=== PATIENT | female | born 1995 | race Asian ===

== ENCOUNTER 2017-01-11 23:34 | Emergency (ER) | payer OTHER ==
[~2017-01-11] VITALS: Ht 165.1 cm; Wt 54.4 kg
[~2017-01-11 23:34] MED LIST: IBUPROFEN400 MG ORAL; NITROFURANTOIN100 M2 ORAL; NKM
[2017-01-11 23:50] VITALS: BP 110/67
[2017-01-12 00:21] LABS: EOSINOPHILS % (AUTO) 0.8 % (0.0-3.0); LYMPHOCYTES % (AUTO) 16.4 % (20.0-45.0); MEAN CORPUSCULAR HEMOGLOBIN 32.4 PG (27.0-31.0); MEAN CORPUSCULAR HGB CONC 33.6 G/DL (32.0-36.0); MEAN CORPUSCULAR VOLUME 96 FL (80-99); MEAN PLATELET VOLUME 5.9 FL (6.5-10.1); MONOCYTES % (AUTO) 10.4 % (1.0-10.0); NEUTROPHILS % (AUTO) 71.3 % (45.0-75.0); PLATELET COUNT 284 K/UL (150-450); RED BLOOD COUNT 4.17 M/UL (4.20-5.40); RED CELL DISTRIBUTION WIDTH 11.1 % (11.6-14.8); WHITE BLOOD COUNT 12.2 K/UL (4.8-10.8)
[2017-01-12 00:28] LABS: KETONES,URINE NEGATIVE (NEGATIVE); LEUKOCYTE ESTERASE ,URINE 3+ (NEGATIVE); NITRITE,URINE NEGATIVE (NEGATIVE); PH,URINE 6.5 (4.5-8.0); PROTEIN,URINE 1+ (NEGATIVE); UROBILINOGEN,URINE 4 MG/DL (0.0-1.0)
[2017-01-12 00:30] LABS: APPEARANCE,URINE SLIGHTLY CLOUDY
[2017-01-12 00:34] LABS: ALANINE AMINOTRANSFERASE 24 U/L (3-33); ALBUMIN/GLOBULIN RATIO 0.8 (1.0-2.7); ANION GAP 15 (5-15); ASPARTATE AMINO TRANSFERASE 21 U/L (5-40); CALCIUM 9.5 mg/dL (8.6-10.2); CARBON DIOXIDE 28 mEQ/L (20-30); CHLORIDE 95 mEQ/L (98-107); GLOMERULAR FILTRATION RATE > 60 mL/min (>60); HEMOLYSIS 4; LIPASE 80 U/L (< 60); POTASSIUM 5.1 mEQ/L (3.4-4.9); SODIUM 138 mEQ/L (135-145); TOTAL PROTEIN 8.5 g/dL (6.6-8.7)
[2017-01-12 00:44] LABS: BACTERIA,URINE FEW /HPF; SQUAMOUS EPITHELIAL CELL,UR MODERATE /LPF (NONE/OCC); WBC,URINE TNTC /HPF (0 - 2)
[2017-01-12] MEDS ORDERED: cefTRIAXone 1 GM in NS 55 ML IVPB ONE (01:15)
[2017-01-12 01:50] VITALS: BP 99/65
[2017-01-12] MEDS ORDERED: IBUPROFEN600 MG ORAL (02:44)
[2017-01-12] MEDS ORDERED: KEFLEX500 MG ORAL (02:44)
[2017-01-12 03:00] VITALS: BP 97/64
--- NOTE | 2017-01-12 03:20 | Emergency Room Report ---
History of Present Illness General Chief Complaint: Abdominal Pain Source: Patient Present Illness HPI Patient is a 21-year-old female who presented after increased right upper and right lower quadrant pain. Patient reported having pain for several days which was worsened after eating. Patient reported having intermittent bouts of abdominal cramping as well some diarrhea. She denied any vomiting. Patient reported having increased swelling to her upper abdomen. She denied prior history of surgeries to her abdomen. She denied being .The patient not having a fever. She denied black or bloody stools. Allergies: Coded Allergies: No Known Allergies (Unverified , 04/14/16) Patient History Past Medical History: see triage record Last Menstrual Period: Dec Reviewed Nursing Documentation: PMH: Agreed, PSxH: Agreed Nursing Documentation-PMH Past Medical History: No Stated History Review of Systems All Other Systems: negative except mentioned in HPI Physical Exam Vital Signs Date Time Temp Pulse Resp B/P Pulse Ox O2 Delivery O2 Flow Rate FiO2 01/11/17 23:38 98.2 101 18 108/75 100 Room Air Sp02 EP Interpretation: reviewed, normal General Appearance: normal inspection, well appearing, no apparent distress, alert, GCS 15, non-toxic Head: atraumatic ENT: normal ENT inspection, hearing grossly normal, normal voice Neck: normal inspection, full range of motion, supple, no bony tend Respiratory: normal inspection, lungs clear, normal breath sounds, no respiratory distress, no retraction, no wheezing Cardiovascular #1: regular rate, rhythm, no edema Gastrointestinal: normal inspection, normal bowel sounds, non tender, soft, no guarding, no hernia Genitourinary: no CVA tenderness Musculoskeletal: normal inspection, back normal, normal range of motion Neurologic: normal inspection, alert, oriented x3, responsive, clinical care coordinator III-XII nml as tested, speech normal Psychiatric: normal inspection, judgement/insight normal, mood/affect normal Skin: normal inspection, normal color, no rash Medical Decision Making Diagnostic Impression: Primary Impression: Urinary tract infection ER Course Patient presented for abdominal pain. Differential diagnoses included ischemic bowel, appendicitis, perforated viscus, abdominal aortic aneurysm, inferior myocardial infarction, viral gastroenteritis Because of complexity of patient's case laboratory testing and imaging studies were ordered. The abdominal ultrasound showed no evidence of gallbladder stones. The patient noted have some tenderness in the right upper quadrant. Urinalysis showed evidence of urinary tract infection. Patient was given IV Rocephin. Laboratory testing showed slightly elevated white blood count. The pelvic ultrasound showed no evidence of ovarian cyst or mass. Patient was advised followup with her PREP ROOM SUPERVISOR for reexamination.The patient is advised to follow up with primary care doctor in 1-2 days. Patient is advised to return if any worsening condition or if any changes in status that are concerning. Labs Test 01/11/17 23:50 White Blood Count 12.2 K/UL (4.8-10.8) Red Blood Count 4.17 M/UL (4.20-5.40) Hemoglobin 13.5 G/DL (12.0-16.0) Hematocrit 40.1 % (37.0-47.0) Mean Corpuscular Volume 96 FL (80-99) Mean Corpuscular Hemoglobin 32.4 PG (27.0-31.0) Mean Corpuscular Hemoglobin Concent 33.6 G/DL (32.0-36.0) Red Cell Distribution Width 11.1 % (11.6-14.8) Platelet Count 284 K/UL (150-450) Mean Platelet Volume 5.9 FL (6.5-10.1) Neutrophils (%) (Auto) 71.3 % (45.0-75.0) Lymphocytes (%) (Auto) 16.4 % (20.0-45.0) Monocytes (%) (Auto) 10.4 % (1.0-10.0) Eosinophils (%) (Auto) 0.8 % (0.0-3.0) Basophils (%) (Auto) 1.0 % (0.0-2.0) Urine Color Yellow Urine Appearance Slightly cloudy Urine pH 6.5 (4.5-8.0) Urine Specific [place] 1.015 (1.005-1.035) Urine Protein 1+ (NEGATIVE) Urine Glucose (UA) Negative (NEGATIVE) Urine Ketones Negative (NEGATIVE) Urine Occult Blood 1+ (NEGATIVE) Urine Nitrite Negative (NEGATIVE) Urine Bilirubin Negative (NEGATIVE) Urine Urobilinogen 4 MG/DL (0.0-1.0) Urine Leukocyte Esterase 3+ (NEGATIVE) Urine RBC 2-4 /HPF (0 - 2) Urine WBC Tntc /HPF (0 - 2) Urine Squamous Epithelial Cells Moderate /LPF (NONE/OCC) Urine Bacteria Few /HPF (NONE) Urine HCG, Qualitative Negative Sodium Level 138 mEQ/L (135-145) Potassium Level 5.1 mEQ/L (3.4-4.9) Chloride Level 95 mEQ/L (98-107) Carbon Dioxide Level 28 mEQ/L (20-30) Anion Gap 15 (5-15) Blood Urea Nitrogen 14 mg/dL (7-23) Creatinine 1.0 mg/dL (0.5-0.9) Estimat Glomerular Filtration Rate > 60 mL/min (>60) Glucose Level 95 mg/dL (74-106) Calcium Level 9.5 mg/dL (8.6-10.2) Total Bilirubin 0.3 mg/dL (0.0-1.2) Aspartate Amino Transf (AST/SGOT) 21 U/L (5-40) Alanine Aminotransferase (ALT/SGPT) 24 U/L (3-33) Alkaline Phosphatase 62 U/L (35-104) Total Protein 8.5 g/dL (6.6-8.7) Albumin 4.0 g/dL (3.5-5.2) Globulin 4.5 g/dL Albumin/Globulin Ratio 0.8 (1.0-2.7) Lipase 80 U/L (< 60) Last Vital Signs Date Time Temp Pulse Resp B/P Pulse Ox O2 Delivery O2 Flow Rate FiO2 01/12/17 01:50 98.2 88 16 99/65 100 Room Air Status: improved Disposition: HOME, SELF-CARE Condition: Stable Scripts Ibuprofen* (MOTRIN*) 600 Mg Tablet 600 MG ORAL Q8H Y for For Pain, #30 TAB 0 Refills Prov: Brian Escobar 01/12/17 Cephalexin* (KEFLEX*) 500 Mg Capsule 500 MG ORAL Q6H, #28 CAP 0 Refills Prov: Brian Escobar 01/12/17 Patient Instructions: Urinary Tract Infection, Abdominal Pain, Adult Brian Escobar Jan 12, 2017 03:20
--- NOTE | 2017-01-12 09:17 | Diagnostic Imaging Report ---
Indication: PAIN Technique: Ultrasound of the abdomen. Comparison: None Findings: Liver: The liver is normal in size and echogenicity. No focal abnormalities are noted. Gallbladder: The gallbladder is normal. No stones are visualized. The wall is not thickened. Common bile duct: Normal in size. Pancreas: The visualized portion of pancreas is normal in echogenicity. There are no masses. Kidneys: The kidneys are normal in size and echogenicity. There is no hydronephrosis. Spleen: The spleen is normal in size and echogenicity. Aorta: The visualized portion of the aorta is normal in caliber. IVC: The demonstrated portion of the inferior vena cava is normal. Impression: Normal ultrasound of the abdomen.
== END 2017-01-12 03:00 | disposition home or self-care (01) ==
LOC: EMR 23:55
DX: N39.0 Urinary tract infection, site not specified (principal); R10.31 Right lower quadrant pain; R10.11 Right upper quadrant pain; R19.7 Diarrhea, unspecified
CPT/HCPCS: 36415; 76700; 76856; 80053; 81003; 81025; 83690; 85025; 87086; 96374; 99284; J0696

== ENCOUNTER 2017-01-16 23:39 | Emergency (ER) | payer OTHER ==
[~2017-01-16] VITALS: Ht 165.1 cm; Wt 54.4 kg
[~2017-01-16 23:39] MED LIST changes: +IBUPROFEN600 MG ORAL; +KEFLEX500 MG ORAL
[2017-01-17] MEDS ORDERED: Morphine Sulfate 4mg/ml Inj IVP ONE (00:30)
[2017-01-17 00:53] LABS: BASOPHILS % (AUTO) 0.7 % (0.0-2.0); EOSINOPHILS % (AUTO) 0.8 % (0.0-3.0); LYMPHOCYTES % (AUTO) 9.5 % (20.0-45.0); MEAN CORPUSCULAR HEMOGLOBIN 31.7 PG (27.0-31.0); MEAN CORPUSCULAR HGB CONC 33.3 G/DL (32.0-36.0); MEAN CORPUSCULAR VOLUME 95 FL (80-99); MEAN PLATELET VOLUME 5.6 FL (6.5-10.1); MONOCYTES % (AUTO) 9.8 % (1.0-10.0); NEUTROPHILS % (AUTO) 79.1 % (45.0-75.0); PLATELET COUNT 321 K/UL (150-450); RED BLOOD COUNT 3.82 M/UL (4.20-5.40); RED CELL DISTRIBUTION WIDTH 11.1 % (11.6-14.8); WHITE BLOOD COUNT 13.8 K/UL (4.8-10.8)
[2017-01-17 01:07] LABS: ALANINE AMINOTRANSFERASE 15 U/L (3-33); ALBUMIN/GLOBULIN RATIO 0.8 (1.0-2.7); ANION GAP 15 (5-15); ASPARTATE AMINO TRANSFERASE 15 U/L (5-40); CARBON DIOXIDE 27 mEQ/L (20-30); CHLORIDE 95 mEQ/L (98-107); CREATININE 0.7 mg/dL (0.5-0.9); GLOMERULAR FILTRATION RATE > 60 mL/min (>60); HEMOLYSIS 0; LIPASE 57 U/L (< 60); POTASSIUM 3.2 mEQ/L (3.4-4.9); SODIUM 137 mEQ/L (135-145)
[2017-01-17 01:18] LABS: APPEARANCE,URINE CLEAR; KETONES,URINE 1+ (NEGATIVE); LEUKOCYTE ESTERASE ,URINE 2+ (NEGATIVE); NITRITE,URINE NEGATIVE (NEGATIVE); PH,URINE 6 (4.5-8.0); PROTEIN,URINE 2+ (NEGATIVE); UROBILINOGEN,URINE NORMAL MG/DL (0.0-1.0)
[2017-01-17 01:29] LABS: BACTERIA,URINE FEW /HPF; RBC,URINE 0 /HPF (0 - 2); SQUAMOUS EPITHELIAL CELL,UR MANY /LPF (NONE/OCC); WBC,URINE 15-20 /HPF (0 - 2)
[2017-01-17 01:30] LABS: MUCUS,URINE FEW /LPF (NONE/OCC)
[2017-01-17] MEDS ORDERED: Vancomycin 1 GM in NS 275 ML IV ONE (03:00)
[2017-01-17] MEDS ORDERED: Vancomycin 1gm inj IVPB ONE (03:11)
--- NOTE | 2017-01-17 03:24 | Emergency Room Report ---
History of Present Illness General Chief Complaint: Abdominal Pain Source: Patient Present Illness HPI 21 YO F with continued right sided abd pain, total of 1+ week now. Was seen here 6 days ago, treated with Rx for Keflex for presumed UTI. No improvement in symptoms. In fact, urine Cx shows no growth at this point. She had negative ultrasound of gall bladder last week. Denies associated nausea/vomiting, diarrhea but mom states decreased appetite. Patient feels "like my abdomen is swollen on that side." Denies urinary complaints. History of right sided renal colic last year but denies similarity of symptoms. Denies sick contacts, foreign travel, previous abd/pelvic surgery. Allergies: Coded Allergies: No Known Allergies (Unverified , 04/14/16) Patient History Past Medical History: other - renal colic Past Surgical History: none Pertinent Family History: none Social History: Denies: alcohol use, drug use, smoking Last Menstrual Period: Dec Now: No Immunizations: UTD Reviewed Nursing Documentation: PMH: Agreed, PSxH: Agreed Nursing Documentation-PMH Past Medical History: No Stated History Review of Systems All Other Systems: negative except mentioned in HPI Physical Exam Vital Signs Date Time Temp Pulse Resp B/P Pulse Ox O2 Delivery O2 Flow Rate FiO2 01/16/17 23:45 97.9 93 16 110/76 100 Room Air Sp02 EP Interpretation: reviewed, normal General Appearance: normal inspection, well appearing, no apparent distress, alert, GCS 15, non-toxic Head: normocephalic, atraumatic Eyes: bilateral eye EOMI, bilateral eye PERRL ENT: normal ENT inspection, hearing grossly normal, normal voice Neck: normal inspection, full range of motion, supple, no bony tend Respiratory: normal inspection, lungs clear, normal breath sounds, no respiratory distress, no retraction, no wheezing Cardiovascular #1: regular rate, rhythm, no edema Gastrointestinal: normal inspection, normal bowel sounds, soft, no guarding, no hernia, other - Mild RUQ ttp. No rebound or guarding. No ttp to RLQ Genitourinary: no CVA tenderness Musculoskeletal: normal inspection, back normal, normal range of motion, Mikki' s Sign negative Neurologic: normal inspection, alert, oriented x3, responsive, mule driver III-XII nml as tested, motor strength/tone normal, speech normal Psychiatric: normal inspection, judgement/insight normal, mood/affect normal Skin: normal inspection, normal color, no rash Lymphatic: normal inspection Medical Decision Making Diagnostic Impression: Primary Impression: Abdominal pain Qualified Codes: R10.11 - Right upper quadrant pain Additional Impression: Leukocytosis Qualified Codes: D72.829 - Elevated white blood cell count, unspecified ER Course Abd pain with rising leukocytosis of unknown cause. VSS. Afebrile. Well appearing. UA: No blood. Multiple leuks and epithelial cells, likely contaminated. But less WBCs seen than on previous Rising leukocytosis to 13.8 from 12.2 CTAP was ordered with PO and IV Contrast; both the boiler control technician and RN neglected to give patient PO contrast. Although appendix was not visualized there were no assoc inflammatory changes in the area. Given patient being female and young, I do not think it would be appropriate to re-scan the patient at this time. A: - Unlikely renal colic as no hematuria, symptoms of >1 week. No stone seen on CT - Unlikely cholecystitis as normal LFTs. Abd ultrasound 1 week ago was negative - Unlikely pyelo as Urine Cx was negative. No CVAT. - Unlikely pelvic source as ttp and pain is RUQ. - Will send Blood and Urine Cx and give broad-spectrum Abx and admit until source can be identified - Accepted by Dr Clemente for transfer to [facility] at 430am Last Vital Signs Date Time Temp Pulse Resp B/P Pulse Ox O2 Delivery O2 Flow Rate FiO2 01/17/17 01:35 97.8 01/16/17 23:45 93 16 110/76 100 Room Air Status: improved Disposition: ADMITTED INPATIENT Condition: Serious Referrals: [facility],REFERRING (PCP) NARAYAN MARKS M.D. Jan 17, 2017 03:24
[2017-01-17 05:02] VITALS: BP 95/55
[2017-01-17] MEDS ORDERED: Zosyn 4.5gm inj ONE (05:33)
[2017-01-17] MEDS ORDERED: Piperacillin/Tazobactam 4.5 GM in NS 110 ML IV SCH (06:00)
[2017-01-17 07:07] VITALS: BP 100/52
[2017-01-17 08:05] VITALS: BP 90/46
[2017-01-17 08:08] VITALS: BP 90/46
--- NOTE | 2017-01-17 09:50 | Diagnostic Imaging Report ---
Clinical Indication: Abdominal pain Technique: No oral contrast utilized, per emergency room physician request IV administration nonionic contrast. Venous phase spiral acquisition obtained through the abdomen and pelvis. Multiplanar reconstructions were generated. Total dose length product 679 mGycm. CTDIvol(s) mGy Comparison: None Findings: The appendix is only equivocally visualized no other no findings to suggest acute appendicitis. No evidence of diverticulosis or diverticulitis. Distal small bowel loops are somewhat prominent with some evidence of mild stasis of contents. No definite small bowel distention. There is equivocal trace free fluid within the pelvis. There is also equivocal trace fluid surrounding the liver. No free intraperitoneal air. The distal esophagus, stomach, duodenum are unremarkable. The gallbladder is unremarkable. The bile ducts are unremarkable. The liver demonstrates a subcentimeter low-attenuation lesion within the dome of the right lobe. The pancreas, spleen, adrenals, kidneys are unremarkable. No mesenteric or retroperitoneal mass or adenopathy. No pelvic mass or adenopathy. Atelectatic changes are seen at the right lung base. The bones are unremarkable Impression: Equivocal slightly prominent fluid-filled distal small bowel loops with evidence of some stasis of contents. This may reflect mild enteritis changes or ileus. There is small amount of free fluid surrounding the liver. Etiology/significance uncertain. There is also equivocal trace free fluid within the pelvis which, if real, is most likely physiologic No acute process otherwise Right basilar pulmonary atelectasis Subcentimeter low-attenuation lesion in the dome of the liver, too small to characterize, most likely benign simple cyst. No further followup necessary This agrees with the preliminary interpretation provided overnight by [facility]eradiology service. The CT scanner at [facility] is accredited by the [employer] and the scans are performed using protocols designed to limit radiation exposure to as low as reasonably achievable to attain images of sufficient resolution adequate for diagnostic evaluation.
== END 2017-01-17 08:15 | disposition short-term general hospital (02) ==
LOC: EMR 23:57
DX: R10.11 Right upper quadrant pain (principal); D72.829 Elevated white blood cell count, unspecified
CPT/HCPCS: 36415; 74177; 80053; 81003; 81025; 83690; 85025; 87040; 87086; 99285; J2270; J2543; J3370; J7050; Q9967

== ENCOUNTER 2019-03-23 17:33 | Emergency (ER) | payer OTHER ==
[~2019-03-23] VITALS: Ht 165.1 cm; Wt 64.4 kg
--- NOTE | 2019-03-23 18:27 | Emergency Room Report ---
History of Present Illness General Chief Complaint: Pain Source: Patient Present Illness HPI 23-year-old female presents to the emergency department complaining of 7 out of 10 in severity pain, swelling and tenderness to small indurated areas in the axilla bilaterally. Patient reports she had symptoms onset yesterday but they were not painful she woke up this morning with tenderness. Patient denies fevers or chills she reports some erythema. Patient states initially she thought it was a small pimple but now she is worried that it might be a lymph node. Patient denies previous history of symptoms similar to this in the past. She denies constitutional symptoms like night sweats, significant changes in weight or history of neoplastic disease. She denies . Allergies: Uncoded Allergies: SHELLFISH (Allergy, Unknown, 03/23/19) Patient History Past Medical History: see triage record Past Surgical History: none Pertinent Family History: none Last Menstrual Period: 3 years ago Now: No Reviewed Nursing Documentation: PMH: Agreed; PSxH: Agreed Nursing Documentation-PMH Past Medical History: No History, Except For Review of Systems All Other Systems: negative except mentioned in HPI Physical Exam Vital Signs Date Time Temp Pulse Resp B/P (MAP) Pulse Ox O2 Delivery O2 Flow Rate FiO2 03/23/19 17:55 98.2 87 18 98 Room Air Sp02 EP Interpretation: reviewed, normal General Appearance: no apparent distress, alert, GCS 15, non-toxic Head: normocephalic, atraumatic Eyes: bilateral eye normal inspection, bilateral eye PERRL ENT: hearing grossly normal, normal voice Neck: full range of motion Respiratory: lungs clear, normal breath sounds, speaking full sentences Cardiovascular #1: regular rate, rhythm Musculoskeletal: back normal, gait/station normal, normal range of motion, non- tender Neurologic: alert, oriented x3, responsive, motor strength/tone normal, sensory intact, speech normal, grossly normal Psychiatric: judgement/insight normal Skin: normal color, warm/dry, well hydrated, other - multiple indurated erythematous swollen lumps in the bilateral axilla, all less than 1cm in size, no LAD, no blisters or vessicles. Lymphatic: no adenopathy Medical Decision Making PA Attestation Dr. quiroga is my supervising Physician whom patient management has been discussed with. Diagnostic Impression: Primary Impression: Hidradenitis axillaris ER Course 23-year-old female presents to the emergency department complaining of 7 out of 10 in severity pain, swelling and tenderness to small indurated areas in the axilla bilaterally. Patient reports she had symptoms onset yesterday but they were not painful she woke up this morning with tenderness. Patient denies fevers or chills she reports some erythema. Patient states initially she thought it was a small pimple but now she is worried that it might be a lymph node. Patient denies previous history of symptoms similar to this in the past. She denies constitutional symptoms like night sweats, significant changes in weight or history of neoplastic disease. She denies . Ddx considered but are not limited to cellulitis, abscess, cystic acne, necrotizing fasciitis, insect bite, hidradenitis just to name a few. Vital signs: are WNL, pt. is afebrile H&PE are most consistent with bilateral hidradenitis. ORDERS: none required at this time, the diagnosis is clinical ED INTERVENTIONS: -none required at this time, the diagnosis is clinical and appointment can appropriately be performed in an outpatient setting. DISCHARGE: At this time pt. is stable for d/c to home. Will provide printed patient care instructions, and any necessary prescriptions. Care plan and follow up instructions have been discussed with the patient prior to discharge. Last Vital Signs Date Time Temp Pulse Resp B/P (MAP) Pulse Ox O2 Delivery O2 Flow Rate FiO2 03/23/19 17:55 98.2 87 18 98 Room Air Status: improved Disposition: HOME, SELF-CARE Condition: Stable Scripts Metronidazole (METRONIDAZOLE) 45 Gm Gel..gram. 1 APPLIC TOPIC TWICE A DAY, #45 GM Prov: Ngoc Reaves 03/23/19 Doxycycline Hyclate* (VIBRAMYCIN*) 100 Mg Capsule 100 MG ORAL EVERY 12 HOURS for 10 Days, #20 CAP 0 Refills Prov: Ngoc Reaves 03/23/19 Patient Instructions: Hidradenitis Suppurativa Additional Instructions: Take medications as directed. Follow up with a Primary Care Provider in 3-5 days, even if your symptoms have resolved. Return sooner to ED if new symptoms occur, or current symptoms become worse. - Please note that this Emergency Department Report was dictated using [employer] laboratory supervisor technology software, occasionally this can lead to erroneous entry secondary to interpretation by the dictation equipment. Ngoc Reaves March 23, 2019 18:27
[2019-03-23] MEDS ORDERED: VIBRAMYCIN100 MG ORAL (18:39)
[2019-03-23] MEDS ORDERED: METRONIDAZOLE45 GM TOPIC (18:39)
--- NOTE | 2019-03-23 18:40 | NUR ---
ED Nurse Note:pt gingeral by felipa flores no new orders. pt adore britton.
[2019-03-23 18:41] VITALS: BP 110/73
--- NOTE | 2019-03-23 19:13 | NUR ---
ER DISCHARGE NOTE: Patient is cleared to be discharged per ERMD, pt is aox4, on room air, with stable vital signs. pt was given dc and prescription instructions, pt was able to verbalize understanding, pt id band removed. pt is able to ambulate with steady gait. pt took all belongings.
[2019-03-23 19:14] VITALS: BP 110/73
== END 2019-03-23 19:15 | disposition home or self-care (01) ==
LOC: EMR 18:30
DX: L73.2 Hidradenitis suppurativa (principal); Z91.013 Allergy to seafood
CPT/HCPCS: 99282

== ENCOUNTER 2019-06-15 21:13 | Emergency (ER) | payer OTHER ==
[~2019-06-15] VITALS: Ht 165.1 cm; Wt 65.8 kg
[~2019-06-15 21:13] MED LIST changes: +METRONIDAZOLE45 GM TOPIC; +VIBRAMYCIN100 MG ORAL
[2019-06-15] MEDS ORDERED: MEDROL DOSEPAK4 MG ORAL (21:20)
--- NOTE | 2019-06-15 21:45 | NUR ---
ED Nurse Note: pt brought in by mother c/o low back pain and n/v, pt reports she injured her back in the and was seen in the [place] [facility] and the pain went away but it came back. pt also reports nausea and vomiting episode x 2. pt AA&ox4, gcs=15, skin warm and dry, resp even and unlabored, will cont monitor.
--- NOTE | 2019-06-15 21:46 | Emergency Room Report ---
History of Present Illness General Chief Complaint: Dizziness Source: Patient Present Illness HPI Patient presents with complaints of general weakness reports that on [facility] and was told about sciatic Pathology She was put on methylprednisolone and reports that about 1 day after that she started feeling some general weakness Had initially reported blurring of her vision however denies any visual changes at this time denies any headache Denies any vomiting or diarrhea denies any saddle paresthesia Allergies: Uncoded Allergies: SHELLFISH (Allergy, Unknown, 03/23/19) Patient History Past Medical History: see triage record Last Menstrual Period: 2016 Now: No - iud Reviewed Nursing Documentation: PMH: Agreed; PSxH: Agreed Nursing Documentation-PMH Past Medical History: No History, Except For Review of Systems All Other Systems: negative except mentioned in HPI Physical Exam Vital Signs Date Time Temp Pulse Resp B/P (MAP) Pulse Ox O2 Delivery O2 Flow Rate FiO2 06/15/19 21:15 98.6 80 14 123/76 (92) 97 Room Air Sp02 EP Interpretation: reviewed, normal General Appearance: well appearing, no apparent distress Head: normocephalic, atraumatic Eyes: bilateral eye PERRL, bilateral eye EOMI ENT: hearing grossly normal, normal pharynx, TMs + canals normal, uvula midline Neck: full range of motion, supple, no meningismus, no bony tend Respiratory: lungs clear, normal breath sounds, no rhonchi, no respiratory distress, no retraction, no accessory muscle use Cardiovascular #1: normal peripheral pulses, regular rate, rhythm, no edema, no gallop, no JVD, no murmur Gastrointestinal: normal bowel sounds, non tender, soft, no mass, no organomegaly, non-distended, no guarding, no hernia, no pulsatile mass, no rebound Genitourinary: no CVA tenderness Musculoskeletal: normal inspection Neurologic: oriented x3, responsive, flatbed driver III-XII nml as tested, motor strength/ tone normal, sensory intact Psychiatric: mood/affect normal Skin: no rash Lymphatic: normal inspection, no adenopathy Medical Decision Making Diagnostic Impression: Primary Impression: Dizziness Additional Impression: Medication reaction ER Course Given the patient's history and presentation multiple differentials and consideration Including but not limited to electrolyte pathology, anemia, infectious pathology Patient does not show any obvious central process or neurological deficits baseline blood work or appropriate levels My consideration is high regarding possible medication reaction with the steroids Patient also here reports that she has been diagnosed with erosive gastritis and was supposed to be taking omeprazole I did write a prescription for this and patient stable for close follow-up Labs Test 06/15/19 22:00 White Blood Count 10.7 K/UL (4.8-10.8) Red Blood Count 4.45 M/UL (4.20-5.40) Hemoglobin 14.9 G/DL (12.0-16.0) Hematocrit 42.3 % (37.0-47.0) Mean Corpuscular Volume 95 FL (80-99) Mean Corpuscular Hemoglobin 33.5 PG (27.0-31.0) Mean Corpuscular Hemoglobin Concent 35.2 G/DL (32.0-36.0) Red Cell Distribution Width 10.1 % (11.6-14.8) Platelet Count 247 K/UL (150-450) Mean Platelet Volume 6.1 FL (6.5-10.1) Neutrophils (%) (Auto) % (45.0-75.0) Lymphocytes (%) (Auto) % (20.0-45.0) Monocytes (%) (Auto) % (1.0-10.0) Eosinophils (%) (Auto) % (0.0-3.0) Basophils (%) (Auto) % (0.0-2.0) Differential Total Cells Counted 100 Neutrophils % (Manual) 85 % (45-75) Lymphocytes % (Manual) 10 % (20-45) Monocytes % (Manual) 5 % (1-10) Eosinophils % (Manual) 0 % (0-3) Basophils % (Manual) 0 % (0-2) Band Neutrophils 0 % (0-8) Platelet Estimate Adequate Platelet Morphology Normal Red Blood Cell Morphology Normal Urine Color Pale yellow Urine Appearance Clear Urine pH 8 (4.5-8.0) Urine Specific [place] 1.010 (1.005-1.035) Urine Protein Negative (NEGATIVE) Urine Glucose (UA) Negative (NEGATIVE) Urine Ketones Negative (NEGATIVE) Urine Blood Negative (NEGATIVE) Urine Nitrite Negative (NEGATIVE) Urine Bilirubin Negative (NEGATIVE) Urine Urobilinogen Normal MG/DL (0.0-1.0) Urine Leukocyte Esterase Negative (NEGATIVE) Urine HCG, Qualitative Negative (NEGATIVE) Sodium Level 141 MMOL/L (136-145) Potassium Level 3.6 MMOL/L (3.5-5.1) Chloride Level 106 MMOL/L (98-107) Carbon Dioxide Level 29 MMOL/L (21-32) Anion Gap 6 mmol/L (5-15) Blood Urea Nitrogen 13 mg/dL (7-18) Creatinine 0.9 MG/DL (0.55-1.30) Estimat Glomerular Filtration Rate > 60 mL/min (>60) Glucose Level 135 MG/DL (74-106) Calcium Level 9.6 MG/DL (8.5-10.1) Total Bilirubin 0.3 MG/DL (0.2-1.0) Aspartate Amino Transf (AST/SGOT) 12 U/L (15-37) Alanine Aminotransferase (ALT/SGPT) 23 U/L (12-78) Alkaline Phosphatase 49 U/L (46-116) Total Protein 8.0 G/DL (6.4-8.2) Albumin 4.0 G/DL (3.4-5.0) Globulin 4.0 g/dL Albumin/Globulin Ratio 1.0 (1.0-2.7) Lipase 274 U/L (73-393) Last Vital Signs Date Time Temp Pulse Resp B/P (MAP) Pulse Ox O2 Delivery O2 Flow Rate FiO2 06/15/19 21:15 98.6 80 14 123/76 (92) 97 Room Air Status: improved Disposition: HOME, SELF-CARE Condition: Improved Scripts Omeprazole (OMEPRAZOLE) 40 Mg Capsule. 40 MG ORAL DAILY, #20 CAP Prov: Eamon Espinoza DO 06/15/19 Additional Instructions: Patient is provided with the discharge instructions notified to follow up with primary doctor in the next 2-3 days otherwise return to the er with any worsening symptoms. Please note that this report is being documented using [employer] technology. This can lead to erroneous entry secondary to incorrect interpretation by the dictating instrument. Eamon Espinoza DO Jun 15, 2019 21:46
[2019-06-15 22:08] VITALS: BP 125/70
--- NOTE | 2019-06-15 22:10 | NUR ---
ED Nurse Note: blood and urine specimen sent to lab.
[2019-06-15 22:19] LABS: APPEARANCE,URINE CLEAR; BILIRUBIN, URINE NEGATIVE (NEGATIVE); COLOR,URINE PALE YELLOW; GLUCOSE, URINE (UA) NEGATIVE (NEGATIVE); KETONES,URINE NEGATIVE (NEGATIVE); LEUKOCYTE ESTERASE ,URINE NEGATIVE (NEGATIVE); NITRITE,URINE NEGATIVE (NEGATIVE); PH,URINE 8 (4.5-8.0); PROTEIN,URINE NEGATIVE (NEGATIVE); UROBILINOGEN,URINE NORMAL MG/DL (0.0-1.0)
[2019-06-15 22:28] LABS: HEMATOCRIT 42.3 % (37.0-47.0); HEMOGLOBIN 14.9 G/DL (12.0-16.0); MEAN CORPUSCULAR VOLUME 95 FL (80-99); PLATELET COUNT 247 K/UL (150-450); RED BLOOD COUNT 4.45 M/UL (4.20-5.40); RED CELL DISTRIBUTION WIDTH 10.1 % (11.6-14.8); WHITE BLOOD COUNT 10.7 K/UL (4.8-10.8)
[2019-06-15 22:37] LABS: ANION GAP 6 mmol/L (5-15); BLOOD UREA NITROGEN 13 mg/dL (7-18); CALCIUM 9.6 MG/DL (8.5-10.1); CARBON DIOXIDE 29 MMOL/L (21-32); CHLORIDE 106 MMOL/L (98-107); CREATININE 0.9 MG/DL (0.55-1.30); POTASSIUM 3.6 MMOL/L (3.5-5.1); SODIUM 141 MMOL/L (136-145)
[2019-06-15 22:42] LABS: ALANINE AMINOTRANSFERASE 23 U/L (12-78); ALKALINE PHOSPHATASE 49 U/L (46-116); ASPARTATE AMINO TRANSFERASE 12 U/L (15-37); BILIRUBIN,TOTAL 0.3 MG/DL (0.2-1.0)
[2019-06-15] MEDS ORDERED: OMEPRAZOLE40 M1 ORAL (23:23)
[2019-06-15 23:30] VITALS: BP 118/67
--- NOTE | 2019-06-15 23:30 | NUR ---
ED Nurse Note: PT CLEARED TO BE D/C PER ERMD, PT DISHCARGE AND AFTERCARE INSTRUCTION PROVIDED W/ PRESCRIPTION, PT EDUCATION DONE VIA DISCUSSION AND HANDOUT, PT ADVISED TO FOLLOW UP WITH PCP OR RETURN TO ED IF CHANGES IN CONDITION, VSS, AMBULATORY W/ STEADY GAIT, ACCOMPANIED BY MOTHER LEFT W/ ALL BELONGINGS.
== END 2019-06-15 23:30 | disposition home or self-care (01) ==
LOC: EMR 21:40
DX: R42 Dizziness and giddiness (principal); Z91.013 Allergy to seafood; T38.0X5A Adverse effect of glucocorticoids and synthetic analogues, initial encounter; Y92.9 Unspecified place or not applicable
CPT/HCPCS: 36415; 80053; 81003; 81025; 83690; 85007; 85025; 99283